=== PATIENT | female | born 1985 | race Caucasian/White ===

== ENCOUNTER 2017-02-18 14:43 | Emergency (ER) | payer MEDICAID ==
[~2017-02-18] VITALS: Ht 160 cm; Wt 52.0 kg
[~2017-02-18 14:43] MED LIST: ALPR0.5T96
[2017-02-18] MEDS ORDERED: SODIUM CHLORIDE 0.9% 1,000 ML IV ONE ×2 (17:27→21:57)
[2017-02-18] MEDS ORDERED: KETOROLAC 30MG/ML VIAL IV STA (17:27)
[2017-02-18 17:44] LABS: BASOPHILS % 0.2 % (0.0-2.0); HEMATOCRIT. 39.2 % (36.0-48.0); HEMOGLOBIN. 13.2 g/dL (12.0-16.0); LYMPHOCYTES % 8.8 % (20.0-50.0); MEAN CORPUSCULAR HEMOGLOBIN 30.3 pg (28.0-32.0); MEAN CORPUSCULAR VOLUME 89.8 fL (81.0-99.0); MEAN PLATELET VOLUME 7.9 fl (7.4-10.4); MONOCYTES % 5.9 % (2.0-8.0); NEUTROPHILS % 85.1 % (40.0-76.0); PLATELET 465 x1000/uL (130-400); RED BLOOD CELL COUNT 4.36 mill/uL (4.2-5.4); RED CELL DISTRIBUTION WIDTH 14.7 % (11.6-14.6)
[2017-02-18 17:47] LABS: CHLORIDE 102 mEq/L (98-107)
[2017-02-18 17:49] LABS: PROTHROMBIN TIME 10.7 sec
[2017-02-18 17:52] LABS: CARBON DIOXIDE 26 mEq/L (21-32); ETHANOL BLOOD < 10 mg/dL
[2017-02-18 17:59] LABS: TROPONIN I < 0.02 ng/mL (0.00-0.04)
[2017-02-18 19:53] LABS: *BARBITURATES SCREEN URINE NEGATIVE (NEGATIVE); *BENZODIAZEPINES SCREEN URINE NEGATIVE (NEGATIVE); *COCAINE SCREEN URINE NEGATIVE (NEGATIVE); CANNABINOID URINE SCREEN NEGATIVE (NEGATIVE); METHADONE URINE SCREEN NEGATIVE (NEGATIVE); PHENCYCLIDINE URINE SCREEN NEGATIVE (NEGATIVE)
[2017-02-18 19:58] LABS: *AMPHETAMINES SCREEN URINE PRESUMTIVE POSITIVE (NEGATIVE); OPIATES URINE SCREEN PRESUMTIVE POSITIVE (NEGATIVE)
[2017-02-19 00:40] VITALS: BP 128/86
== END 2017-02-19 00:41 | disposition home or self-care (01) ==
LOC: ER 17:24
DX: T43.621A Poisoning by amphetamines, accidental (unintentional), initial encounter (principal); R07.9 Chest pain, unspecified; F17.200 Nicotine dependence, unspecified, uncomplicated
CPT/HCPCS: 36415; 71010; 78582; 80053; 80305; 81025; 83880; 84484; 85025; 85610; 93005; 96361; 96374; 99285; A9540; A9558; C1893; G0482; J1885; Z7610; J7030

== ENCOUNTER 2018-06-03 21:20 | Emergency (ER) | payer MEDICAID ==
[~2018-06-03] VITALS: Ht 160 cm; Wt 53.0 kg
[~2018-06-03 21:20] MED LIST changes: +ALPR0.5T; -ALPR0.5T96
[2018-06-04 02:56] VITALS: BP 106/53
== END 2018-06-04 03:07 | disposition home or self-care (01) ==
LOC: ER 21:20
DX: T16.1XXA Foreign body in right ear, initial encounter (principal); F17.200 Nicotine dependence, unspecified, uncomplicated; F11.10 Opioid abuse, uncomplicated; Z88.1 Allergy status to other antibiotic agents; Z79.899 Other long term (current) drug therapy; X58.XXXA Exposure to other specified factors, initial encounter; Y93.89 Activity, other specified; Y92.89 Other specified places as the place of occurrence of the external cause; Y99.8 Other external cause status
CPT/HCPCS: 69200; 99284

== ENCOUNTER 2022-08-24 00:33 | Emergency (ER) | payer BC, MEDICAID ==
[~2022-08-24] VITALS: Ht 160 cm; Wt 67.3 kg
[2022-08-24 01:06] VITALS: BP 123/73
[2022-08-24] MEDS ORDERED: LIDOCAINE HCL/PF 1% 10 MG/ML 5ML VIAL INFIL ONE (02:15)
[2022-08-24] MEDS ORDERED: ACETAMINOPHEN 325MG TABLET PO ONE (02:15)
[2022-08-24] MEDS ORDERED: TETANUS, DIPHTHERIA, PERTUSSIS VAC/PF 0.5ML (>10YR OLD) IM ONE (02:15)
[2022-08-24] MEDS ORDERED: BACITRACIN ZINC OINT UDPKT TOP ONE (02:15)
== END 2022-08-24 03:46 | disposition home or self-care (01) ==
LOC: ER 00:33
DX: S01.81XA Laceration without foreign body of other part of head, initial encounter (principal); W22.8XXA Striking against or struck by other objects, initial encounter; Y93.89 Activity, other specified; Y92.89 Other specified places as the place of occurrence of the external cause; Y99.8 Other external cause status
CPT/HCPCS: 12011; 90471; 90715; 99283; J3490

== ENCOUNTER 2022-08-31 00:31 | Emergency (ER) | payer MEDICAID ==
[~2022-08-31] VITALS: Ht 160 cm; Wt 64.0 kg
[2022-08-31 00:55] VITALS: BP 136/91
== END 2022-08-31 07:35 | disposition left against medical advice (07) ==
LOC: ER 00:31
DX: Z53.21 Procedure and treatment not carried out due to patient leaving prior to being seen by health care provider (principal)